=== PATIENT | female | born 1990 | race Caucasian/White ===

== ENCOUNTER → 2020-10-31 | Outpatient (CLI) | payer OTHER ==
[~2020-10-31] VITALS: Ht 170.2 cm; Wt 80.3 kg
== END ==
LOC: OPSV 07:00
DX: O98.111 Syphilis complicating pregnancy, first trimester (principal); O9A.211 Injury, poisoning and certain other consequences of external causes complicating pregnancy, first trimester; T36.0X5A Adverse effect of penicillins, initial encounter; Z3A.01 Less than 8 weeks gestation of pregnancy
CPT/HCPCS: 96365; 96366; 96372; J0171; J0561; J1200; J2540; J2930

== ENCOUNTER → 2020-11-07 | Outpatient (CLI) | payer OTHER | LOC: EROP 09:08 → ER1 09:08 → EROP 09:08 → EDSTATUS 09:25 | DX: Z51.6 Encounter for desensitization to allergens (principal); Z88.0 Allergy status to penicillin | CPT/HCPCS: 96365; 96366; J0171; J0561; J1200; J2540; J7120 ==